=== PATIENT | male | born 1995 | race Caucasian/White ===

== ENCOUNTER → 2020-12-13 16:53 | Outpatient (CLI) | payer OTHER, MEDICAID, SELFPAY ==
[2020-12-13] MEDS: COVID-19 VACC #1, MRNA(MOD) 100 MCG/0.5 ML VIAL IM (16:58)
== END ==
PROVIDERS: Family Provider Dermatology; PCP Family Medicine; Visit Provider Internal Medicine
DX: Z23 Encounter for immunization (principal)
CPT/HCPCS: 0011A; 91301

== ENCOUNTER → 2021-01-10 14:48 | Outpatient (CLI) | payer OTHER, MEDICAID, SELFPAY ==
[2021-01-10] MEDS: COVID-19 VACC #2, MRNA(MOD) 100 MCG/0.5 ML VIAL IM (14:54)
== END ==
PROVIDERS: Family Provider Dermatology; PCP Family Medicine; Visit Provider Internal Medicine
DX: Z23 Encounter for immunization (principal)
CPT/HCPCS: 0012A; 91301

== ENCOUNTER 2025-05-13 08:27 | Day surgery (SDC) | payer OTHER, SELFPAY ==
[2025-05-06 13:55] VITALS: BMI 33.3
[2025-05-13] MEDS: LACTATED RINGERS 1,000 ML 42 ML IV ×2 (08:46→12:32)
[2025-05-13] MEDS: ACETAMINOPHEN 325 MG TABLET 975 MG PO (08:48)
[2025-05-13 09:00] VITALS: BP 126/69; PULSE 70; RESP 16; TEMP 36.8; BMI 33.3
--- NOTE | 2025-05-13 09:58 | PM.PREOP ---
Pre-operative Note COVID-19 COVID-19 status: Not tested Interval Note History & Physical reviewed/Exam performed by Physician: Yes Changes to H&P: No
--- NOTE | 2025-05-13 10:30 | SUR.OPER ---
Supine on padded OR bed, head on pillow, left arm secured on padded arm boards at <90 degrees abduction, legs uncrossed, safety belt at thigh, tape over blanket over lower legs. Right arm resting on hand table. Final position approved by Dr. Lim.
[2025-05-13 12:25] VITALS: BP 112/58; PULSE 67; RESP 12; TEMP 36.1; O2SAT 92
[2025-05-13 12:30] VITALS: BP 118/72; PULSE 68; RESP 12; TEMP 36.1; O2SAT 94
[2025-05-13 12:35] VITALS: BP 131/89; PULSE 71; RESP 15; TEMP 36.2; O2SAT 95
--- NOTE | 2025-05-13 12:51 | PM.OP.1 ---
Operative Date/Time/Diagnoses Date of procedure: 05/13/25 Time of procedure: 10:45 Pre-op diagnosis: Displaced metacarpal head fracture index finger Post-op diagnosis: same Procedure & Clinicians Procedure: Open reduction and percutaneous pinning of index finger metacarpal head fracture Same procedure(s) as scheduled: Yes Surgeon: Luz Lim Nutrition Program Instructor: Venessa Medina Anesthesia Type: General Operative Notes Findings: see below Closure Type: primary Specimen(s): none sent Applied: none Estimated Blood Loss (mL): 10 Blood products transfused: none Tourniquet time (min): 94 Procedure in detail: Procedure: 1. Open reduction percutaneous pinning right index finger metacarpal 2. Short-arm splint Surgeon: Luz Lim DO Nutrition Program Instructor: Venessa Medina PAC Anesthesia Type: General Operative Notes Findings: Comminuted right index finger metacarpal Estimated Blood Loss (mL): 5 Blood products transfused: none Tourniquet time (min): 94 Procedure in detail: Patient was met in the preoperative holding area. The consent was reviewed. Initials were placed on the operative site. The patient was taken back to the operating room and placed in supine position. General anesthesia was induced. A well-padded tourniquet was placed on the right upper extremity. A time-out was performed confirming the correct patient, correct procedure, correct extremity initials on the operative site. ? An Esmarch was used to exsanguinate the right upper extremity and the tourniquet was inflated to 200 mmHg. ?A 2 cm vertical incision was made at the dorsal ulnar aspect of the index finger metacarpal utilizing fluoroscopy for localization.? A 2.0 mm drill was used to place a hole in the base of the metacarpal and a 2.7 mm drill was used to expand the hole.? The K-wires were attempted to be passed across the metacarpal and through the fracture site the K-wires were unable to be passed.? I then made a 2 cm incision dorsally over the articular surface of the metacarpal dissection was taken down through to the extensor tendon.? The extensor tendons were protected the joint capsule was opened.? The metacarpal head had been displaced dorsally.? The fracture site was identified and cleared of debris.? Then the metacarpal head was dorsally reduced.? This was held in place with a dental pick and 2 0.0045 K-wires were placed across the fracture site.? Reduction fixation was confirmed with fluoroscopic imaging. ?The wires were bent and cut and repeat imaging was obtained to confirm no displacement. ? The wound was copiously irrigated and closed with 3-0 nylon.? Xeroform plain gauze and a volar splint past the MCP joints was placed. An human resource assistant was used in this procedure for positioning fracture reduction and fixation as well as closure. A total of 10 cc of 0.25% Marcaine were utilized as a field block. The patient was awoken and taken to the PACU in stable condition all counts were correct at the end the case. Complications: none Complications: none Post-operative Condition: stable Disposition: PACU
[2025-05-13] MEDS: fentaNYL 100 MCG/2 ML INJ IV ×2 (13:02→13:10)
[2025-05-13 13:05] VITALS: BP 127/83; PULSE 58; O2SAT 98
[2025-05-13 13:23] VITALS: BP 130/87; PULSE 55; RESP 12; O2SAT 98
== END 2025-05-13 13:40 | disposition home or self-care (01) ==
PROVIDERS: Family Provider Dermatology; PCP Family Medicine; Referring Provider Family Medicine; Visit Provider Orthopaedic Surgery
PROC: (CPT 26615; principal; 2025-05-13 10:15)
DX: S62.330A Displaced fracture of neck of second metacarpal bone, right hand, initial encounter for closed fracture (principal); W19.XXXA Unspecified fall, initial encounter
CPT/HCPCS: 26615; C1713; J0690; J2250; J2704; J3010